=== PATIENT | male | born 1970 | race Hispanic/Latino ===

== ENCOUNTER 2017-11-13 06:05 | Emergency (ER) | payer BC ==
[2017-11-13 06:31] VITALS: TEMP 98.1
[2017-11-13] MEDS ORDERED: Lactated Ringer's 1,000 ML IV STA (06:45)
[2017-11-13] MEDS ORDERED: Iohexol 240 (50 ml) ONE (07:19)
[2017-11-13 07:23] LABS: BASO # 0.01 K/mm3 (0.0-2.0); BASO % 0.1 % (0.0-3.0); EOS # 0.1 (0.0-0.7); EOS % 1.4 % (1.5-5.0); GRAN # 7.58 (1.4-6.5); GRAN % 82.9 % (50.0-68.0); HEMOGLOBIN 15.8 g/dL (14.0-18.0); LYMPH # 0.7 (1.2-3.4); LYMPH % 7.2 % (22.0-35.0); MEAN CELL VOLUME 93.9 fl (80.0-105.0); MEAN CORPUSCULAR HEMOGLOBIN 32.2 pg (25.0-35.0); MEAN CORPUSCULAR HGB CONC 34.3 g/dl (31.0-37.0); MEAN PLATELET VOLUME 9.3 fl (7.0-11.0); MONO # 0.8 (0.1-0.6); MONO % 8.4 % (1.0-6.0); RBC 4.91 10^6/uL (3.5-6.1); RED CELL DISTRIBUTION WIDTH 12.2 % (11.5-14.5); WHITE BLOOD COUNT 9.2 10^3/ul (4.5-11.0)
[2017-11-13 07:34] LABS: ALB/GLOB RATIO 1.2 (1.1-1.8); ALBUMIN 4.1 g/dL (3.0-4.8); ALT/SGPT 43 U/L (7-56); AMYLASE 47 U/L (35-125); AST/SGOT 38 U/L (17-59); BLOOD UREA NITROGEN 13 mg/dL (7-21); CALCIUM 9.4 mg/dL (8.4-10.5); GFR AFRICAN-AMERICAN > 60; GFR NON-AFRICAN AMERICAN > 60; LIPASE 40 U/L (23-300)
[2017-11-13 07:44] LABS: TROPONIN I < 0.01 ng/mL
--- NOTE | 2017-11-13 08:08 | ED PDOC ---
Arrival/HPI - General Chief Complaint: Abdominal Pain Time Seen by Provider: 11/13/17 06:45 Historian: Patient - History of Present Illness Narrative History of Present Illness (Text): 11/13/17 08:05 47 year old male, who denies any past medical history, presents to the emergency department complaining of lower abdominal pain associated with diarrhea for the past 24 hours. Patient states he had diffuse abdominal pain for the past 2 days. Patient reports mild nausea, but no vomiting. Patient reports diarrhea, but denies any fever, chills, chest pain, shortness of breath , hematochezia, hematuria, urinary symptoms, back pain, neck pain, headache, dizziness, or any other complaints. Time/Duration: 24 hours Symptom Onset: Sudden Symptom Course: Unchanged Activities at Onset: Light Context: Home Past Medical History - Provider Review Nursing Documentation Reviewed: Yes - Infectious Disease Hx of Infectious Diseases: None - Musculoskeletal/Rheumatological Other/Comment: L KNEE INJURY, CERVICAL NECK PAIN - Psychiatric Hx Psychophysiologic Disorder: No Hx Substance Use: No - Surgical History Other/Comment: L KNEE, NECK - Anesthesia Hx Anesthesia: Yes Family/Social History - Physician Review Nursing Documentation Reviewed: Yes Family/Social History: No Known Family HX Smoking Status: Never Smoked Hx Alcohol Use: Yes Frequency of alcohol use: Socially Hx Substance Use: No Allergies/Home Meds Allergies/Adverse Reactions: Allergies No Known Allergies Allergy (Verified 11/13/17 06:25) Review of Systems - Physician Review All systems were reviewed & negative as marked: Yes - Review of Systems Constitutional: absent: Fevers, Other (Chills) Respiratory: absent: SOB Cardiovascular: absent: Chest Pain Gastrointestinal: Abdominal Pain, Diarrhea, Nausea. absent: Vomiting, Hematochezia Genitourinary Male: absent: Dysuria, Frequency, Hematuria Musculoskeletal: absent: Back Pain, Neck Pain Neurological: absent: Headache, Dizziness Physical Exam Vital Signs Reviewed: Yes Vital Signs Temp Pulse Resp BP Pulse Ox 11/13/17 10:05 81 18 130/78 100 11/13/17 08:05 87 18 135/85 98 11/13/17 06:31 151/107 H 11/13/17 06:26 98.1 F 103 H 20 97 Temperature: Afebrile Blood Pressure: Normal Pulse: Regular Respiratory Rate: Normal Appearance: Positive for: Well-Appearing, Non-Toxic, Comfortable Pain Distress: None Mental Status: Positive for: Alert and Oriented X 3 - Systems Exam Head: Present: Atraumatic, Normocephalic Pupils: Present: PERRL Extroacular Muscles: Present: EOMI Conjunctiva: Present: Normal Mouth: Present: Moist Mucous Membranes Neck: Present: Normal Range of Motion Respiratory/Chest: Present: Clear to Auscultation, Good Air Exchange. No: Respiratory Distress, Accessory Muscle Use Cardiovascular: Present: Regular Rate and Rhythm, Normal S1, S2. No: Murmurs Abdomen: Present: Normal Bowel Sounds, Other (Bilateral abdominal pain). No: Tenderness, Distention, Peritoneal Signs Back: Present: Normal Inspection Upper Extremity: Present: Normal Inspection. No: Cyanosis, Edema Lower Extremity: Present: Normal Inspection. No: Edema Neurological: Present: GCS=15, CN II-XII Intact, Speech Normal Skin: Present: Warm, Dry, Normal Color. No: Rashes Psychiatric: Present: Alert, Oriented x 3, Normal Insight, Normal Concentration Medical Decision Making ED Course and Treatment: 11/13/17 08:05 Impression: 47 year old male presents complaining of lower abdominal pain associated with diarrhea and mild nausea for the past 24 hours. Plan: -- CT Abdomen & Pelvis PO & IV Contrast -- Labs -- EKG -- Lactated Ringer's 1,000ml IV -- Zofran Inj -- Urinalysis -- Reassess and disposition Progress Notes: 11/13/17 08:25 EKG shows NSR at 79 BPM with incomplete RBBB. Interpreted by me. PROCEDURE: CT Abdomen and Pelvis with contrast Dictator : José Miguel Franco MD Report Date : 11/13/2017 09:40:56 IMPRESSION: 1. Mild left hydroureteronephrosis and delayed left nephrogram is appreciated with perinephric reaction due to a 5.0 x 3.4 x 10.9 mm pair of calculi obstructing proximal left ureter at the L3 level as discussed above. This is a combined measurement of what appear to be 2 small calculi. A solitary punctate intrarenal calcified at the left kidney with none on the right. 2. Hepatic steatosis. ADDENDUM: Omnipaque 350 was utilized for intravenous contrast administration to a dose of 100 cc and the total exam DLP measured 469.02 mGy-cm. [ Addendum Report Added by José Miguel Franco MD at 11/13/2017 10:08:01 ] - Lab Interpretations Lab Results: 11/13/17 07:00 11/13/17 07:00 Lab Results 11/13/17 07:00: Sodium 142, Potassium 4.2, Chloride 103, Carbon Dioxide 26, Anion Gap 17, BUN 13, Creatinine 1.1, Est GFR ( Amer) > 60, Est GFR (Non- Af Amer) > 60, Random Glucose 118 H, Calcium 9.4, Total Bilirubin 1.0, AST 38, ALT 43, Alkaline Phosphatase 55, Lactate Dehydrogenase 430, Total Creatine Kinase 60, Troponin I < 0.01, Total Protein 7.4, Albumin 4.1, Globulin 3.4, Albumin/Globulin Ratio 1.2, Amylase 47, Lipase 40 11/13/17 07:00: WBC 9.2, RBC 4.91, Hgb 15.8, Hct 46.1, MCV 93.9, MCH 32.2, MCHC 34.3, RDW 12.2, Plt Count 170, MPV 9.3, Gran % 82.9 H, Lymph % (Auto) 7.2 L, [place] % (Auto) 8.4 H, Eos % (Auto) 1.4 L, Baso % (Auto) 0.1, Gran # 7.58 H, Lymph # 0.7 L, [place] # 0.8 H, Eos # 0.1, Baso # 0.01 I have reviewed the lab results: Yes - RAD Interpretation Radiology Orders: 11/13/17 07:17 ABDOMEN & PELVIS [ABD PELVIS PO & IV CONTRAST] [CT] Stat - EKG Interpretation Interpreted by ED Physician: Yes Type: 12 lead EKG - Medication Orders Current Medication Orders: Discontinued Medications Lactated Ringer's (Lactated Ringer's) 1,000 mls @ 100 mls/hr IV .Q10H STA Stop: 11/13/17 16:44 Last Admin: 11/13/17 07:06 Dose: 100 mls/hr eMAR Start Stop Document 11/13/17 07:06 CNR (Rec: 11/13/17 07:06 CNR [id number]) Intravenous Solution Start Date 11/13/17 Start Time 07:00 Ketorolac Tromethamine (Toradol) 30 mg IVP STAT STA Stop: 11/13/17 10:29 Last Admin: 11/13/17 10:30 Dose: 30 mg MAR Pain Assessment Document 11/13/17 10:30 JOL (Rec: 11/13/17 11:41 JOL [id number]) Pain Reassessment Is this a pain reassessment? No Sleep Is patient sleeping during reassessment? No Presence of Pain Presence of Pain Yes Pain Scale Used Pain Scale Used Numeric Location Left, Right or Bilateral Bilateral Upper or Lower Lower Pain Location Body Site Back Description Intensity of Pain at present 6 IVP Administration Document 11/13/17 10:30 JOL (Rec: 11/13/17 11:41 JOL [id number]) Charges for Administration # of IVP Administrations 1 Ondansetron HCl (Zofran Inj) 4 mg IVP STAT STA Stop: 11/13/17 07:18 Last Admin: 11/13/17 07:25 Dose: 4 mg IVP Administration Document 11/13/17 07:25 JOL (Rec: 11/13/17 07:25 JOL [id number]) Charges for Administration # of IVP Administrations 1 - Scribe Statement The provider has reviewed the documentation as recorded by the Shivani Luke Provider Scribe Attestation: All medical record entries made by the Scribe were at my direction and personally dictated by me. I have reviewed the chart and agree that the record accurately reflects my personal performance of the history, physical exam, medical decision making, and the department course for this patient. I have also personally directed, reviewed, and agree with the discharge instructions and disposition. Disposition/Present on Arrival - Present on Arrival Any Indicators Present on Arrival: No History of DVT/PE: No History of Uncontrolled Diabetes: No Urinary Catheter: No History of Decub. Ulcer: No History Surgical Site Infection Following: None - Disposition Have Diagnosis and Disposition been Completed?: Yes Diagnosis: Kidney stone Disposition: HOME/ ROUTINE Disposition Time: 09:40 Condition: GOOD Discharge Instructions (ExitCare): Kidney Stones (ED), How to Strain Your Urine (ED) Additional Instructions: Thank you for letting us take care of you today. The emergency medical care you received today was directed at your acute symptoms. If you were prescribed any medication, please fill it and take as directed. It may take several days for your symptoms to resolve. Return to the Emergency Department if your symptoms worsen, do not improve, or if you have any other problems. Please contact your doctor or call one of the physicians/clinics you have been referred to that are listed on the Patient Visit Information form that is included in your discharge packet. Bring any paperwork you were given at discharge with you along with any medications you are taking to your follow up visit. Our treatment cannot replace ongoing medical care by a primary care provider (PCP) outside of the emergency department. Thank you for allowing the [facility] team to be part of your care today. Follow up with your Dr. Robles in 3-4 day for re-evaluation and further management. Prescriptions: Ciprofloxacin [Cipro] 500 mg PO BID #14 tab Ibuprofen [Motrin] 600 mg PO Q6 PRN #20 tab PRN Reason: Pain, Moderate (4-7) Tamsulosin [Flomax] 0.4 mg PO DAILY #7 cap Referrals: Kandy Rizo, [Primary Care Provider] - Follow up with primary Baljinder Robles MD [Staff Provider] - Follow up with primary Forms: [employer] (Japanese)
[2017-11-13] MEDS ORDERED: Iohexol 350 MG/100 ML VIAL ONE (08:50)
--- NOTE | 2017-11-13 09:42 | CT ---
PROCEDURE: CT Abdomen and Pelvis with contrast HISTORY: lower abdominal pain (R>L) COMPARISON: None. TECHNIQUE: Contrast dose: Radiation dose: Total exam DLP = mGy-cm. This CT exam was performed using one or more of the following dose reduction techniques: Automated exposure control, adjustment of the mA and/or kV according to patient size, and/or use of iterative reconstruction technique. FINDINGS: LOWER THORAX: Small hiatal hernia is identified with lung bases otherwise clear. LIVER: [id number] diffuse hepatic steatosis identified without underlying discrete hepatic mass appreciable. No intrahepatic biliary dilatation identified. GALLBLADDER AND BILE DUCTS: Unremarkable. PANCREAS: Unremarkable. No gross lesion or ductal dilatation. SPLEEN: Unremarkable. ADRENALS: Unremarkable. No mass. KIDNEYS AND URETERS: Mild left hydro ureteral nephrosis appreciated due to a proximal left ureteral calculus measuring 5.0 x 3.4 x 10.9 mm at the inferior L3 level of the left ureter. There may be 2 tiny calculi stacked together comprising this total volume rather than a solitary calculus (based on sagittal reconstructed dataset series 602). Mild left perinephric reaction is appreciated. A delayed left nephrogram is appreciated. None of punctate intrarenal calcified at the lower pole left kidney with no additional radiodense calculi identified bilaterally otherwise. Urinary bladder is unremarkable appearing with prostate gland borderline enlarged. VASCULATURE: Unremarkable. No aortic aneurysm. BOWEL: Unremarkable. No obstruction. No gross mural thickening. APPENDIX: Normal appendix. PERITONEUM: Unremarkable. No free fluid. No free air. LYMPH NODES: Unremarkable. No enlarged lymph nodes. BONES: No acute fracture. OTHER FINDINGS: None. IMPRESSION: 1. Mild left hydroureteronephrosis and delayed left nephrogram is appreciated with perinephric reaction due to a 5.0 x 3.4 x 10.9 mm pair of calculi obstructing proximal left ureter at the L3 level as discussed above. This is a combined measurement of what appear to be 2 small calculi. A solitary punctate intrarenal calcified at the left kidney with none on the right. 2. Hepatic steatosis.
--- NOTE | 2017-11-13 12:27 | CARD ---
APPROVED REPORT EKG Measurement Heart [id number] <Conclusion> Normal sinus rhythm Incomplete right bundle branch block Septal infarct, age undetermined Abnormal ECG
[2017-11-13 14:18] VITALS: BP 130/78; PULSE 81; RESP 18; O2SAT 100
== END 2017-11-13 10:40 | disposition home or self-care (01) ==
LOC: ED 06:05
DX: N20.0 Calculus of kidney (principal)
CPT/HCPCS: 74177; 80053; 82150; 82550; 83615; 83690; 84484; 85025; 93005; 96374; 96375; 99284; J1885; J2405; J7120; Q9966; Q9967